=== PATIENT | female | born 1945 | race Caucasian/White ===

== ENCOUNTER 2021-09-29 05:27 | Emergency (ER) | payer MEDICARE, OTHER ==
[~2021-09-29] VITALS: Ht 162.6 cm; Wt 72.5 kg
[2021-09-29] MEDS ORDERED: METF-1211 PO (06:31)
[2021-09-29] MEDS ORDERED: PERTUSS(ACELL),DIPH,TET VAC/PF 0.5 ML SYRINGE IM. ONE (06:45)
[2021-09-29] MEDS ORDERED: LIDOCAINE 1% 30 ML/SOD BICARB 8.4% 4 ML SQ ONE (06:45)
[2021-09-29] MEDS ORDERED: CeFAZolin 1 GM/DEXTROSE 50 ML IV ONE (07:15)
[2021-09-29 09:00] VITALS: BP 139/79
== END 2021-09-29 09:57 | disposition home or self-care (01) ==
LOC: EMS 05:28
DX: S62.522B Displaced fracture of distal phalanx of left thumb, initial encounter for open fracture (principal); E11.9 Type 2 diabetes mellitus without complications; W18.39XA Other fall on same level, initial encounter; Y93.89 Activity, other specified; Y92.89 Other specified places as the place of occurrence of the external cause; Y99.8 Other external cause status
CPT/HCPCS: 26755; 73120; 73130; 82962; 90471; 90715; 99285; J0690; J3490; 96365